=== PATIENT | male | born 1990 | race African-American/Black ===

== ENCOUNTER 2019-07-07 13:12 | Emergency (ER) | payer SELFPAY ==
[~2019-07-07] VITALS: Ht 172.7 cm; Wt 113.4 kg
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
== END 2019-07-07 15:00 | disposition home or self-care (01) ==
LOC: FSED 13:12
DX: M25.562 Pain in left knee (principal); M70.42 Prepatellar bursitis, left knee; M25.422 Effusion, left elbow; I10 Essential (primary) hypertension
CPT/HCPCS: 99283

== ENCOUNTER 2020-07-04 12:54 | Emergency (ER) | payer SELFPAY ==
[~2020-07-04] VITALS: Ht 172.7 cm; Wt 94.3 kg
[2020-07-04] MEDS ORDERED: KETOROLAC TROMETHAMINE 60 MG/2 ML VIAL IM ONE (13:15)
[2020-07-04] MEDS ORDERED: KETOROLAC TROMETHAMINE 60 MG/2 ML VIAL ONE (13:51)
--- NOTE | 2020-07-04 14:06 | Diagnostic Imaging Report ---
X-ray chest 2 views History: Fell flight of stairs yesterday. Chest pain Comparison: None Findings: Central airways: Unremarkable. Heart: Normal size. Mediastinal silhouettes: Unremarkable. Pleural spaces: No pleural effusion or pneumothorax. Lungs: No significant focal lung disease. Skeletal structures: There seems to be a compression fracture of the T11 vertebra body. Extrathoracic soft tissues: Unremarkable. There is also metallic object with a cylindrical portion and then crown like radiating projections at one and superimposed on the midline chest posteriorly in close relationship with the wedged vertebral body. The exact nature is uncertain. Impression: As above. Most historical details and additional imaging may be considered. Signed by: Dmitry Rosas MD on 07/04/2020 2:02 PM
--- NOTE | 2020-07-04 14:11 | NUR ---
cant medicate until pt back from radiology...
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
--- NOTE | 2020-07-04 14:28 | Diagnostic Imaging Report ---
X-ray C-spine 2 views History: Fall. Pain left side of the neck and chest. Comparison: None Findings: C-spine series consisting of bilateral view, AP view, open mouth odontoid view, swimmer's view. There is slight straightening of the C-spine lordosis. C7-T1 junction is not seen in its entirety on the lateral view. There is no abnormal prevertebral soft tissue swelling. The spinal and spinal laminar lines are intact. There is a concern about increased density of the vertebral body at C6 level. A compression is less likely but not entirely ruled out. The swimmer's view is suboptimal as the cervicothoracic junction is obscured by the clavicles and one swimmer's view by the humerus. The open-mouth odontoid view is suboptimal. The atlantoaxial articulation is intact but the odontoid is not fully evaluated. No other incidental findings. Impression: Technically limited C-spine series. If there is a strong concern about C-spine injury clinically, oblique views of the C-spine or preferably a C-spine CT with reconstructions should be considered. Signed by: Dmitry Rosas MD on 07/04/2020 2:25 PM
[2020-07-04] MEDS ORDERED: CYCLOBENZAPRINE10 MG PO (14:34)
--- NOTE | 2020-07-04 14:34 | Diagnostic Imaging Report ---
X-ray left shoulder multiple views History: Fall Findings: No acute fracture, subluxation, significant soft tissue abnormality. Impression: as above. Signed by: Dmitry Rosas MD on 07/04/2020 2:30 PM
[2020-07-04] MEDS ORDERED: CYCLOBENZAPRINE HCL 10 MG TAB PO ONE (14:45)
[2020-07-04] MEDS ORDERED: DIAZEPAM 2 MG TAB PO ONE (14:45)
[2020-07-04] MEDS ORDERED: DIAZEPAM 5 MG TAB PO ONE (15:00)
--- NOTE | 2020-07-04 15:50 | Diagnostic Imaging Report ---
CT C-SPINE W/O - HOPD HISTORY: Trauma, pain COMPARISON: Cervical spine radiographs 07/04/2020 TECHNIQUE: CT of the cervical spine without contrast. Sagittal and coronal reformations were created. One or more of the following dose reduction techniques were used: Automated exposure control, adjustment of the mA and/or kV according to patient size, and/or utilization of iterative reconstruction technique. FINDINGS: Cervical lordosis is straightened. There is no scoliosis or subluxation. Small corticated defect in the right anterior arch of C1 may be congenital or from remote/chronic trauma. Similar corticated defect in the posterior arch of C1 also may be congenital or from remote/chronic trauma. Otherwise, no definite acute fractures, compression deformity, or destructive osseous lesions are seen. The craniocervical junction is intact. No gross spinal canal masses are seen. The paravertebral and paraspinal soft tissues are unremarkable. Degenerative changes: The disc spaces are preserved with minimal spondylotic changes. Incidental findings: The partially imaged adenoid tonsils are prominent. IMPRESSION: 1. Small corticated defects (2 total) in the anterior and posterior arch of C1 may be congenital or from remote/chronic trauma. 2. Otherwise, no acute osseous abnormalities. 3. Cannot exclude ligament, spinal cord and or vascular abnormalities on the basis of this examination. Signed by: Dr. Zi Christianson M.D. on 07/04/2020 3:47 PM
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
== END 2020-07-04 16:17 | disposition home or self-care (01) ==
LOC: FSED 13:15
DX: M25.512 Pain in left shoulder (principal); M54.2 Cervicalgia; W10.8XXA Fall (on) (from) other stairs and steps, initial encounter; Y93.E6 Activity, residential relocation; Y92.008 Other place in unspecified non-institutional (private) residence as the place of occurrence of the external cause; I10 Essential (primary) hypertension
CPT/HCPCS: 71046; 72040; 72125; 73030; 99284; J1885